=== PATIENT | female | born 1980 | race Caucasian/White ===

== ENCOUNTER 2019-11-11 12:18 | Emergency (ER) | payer SELFPAY ==
--- NOTE | 2019-11-11 13:04 | ER Document Report ---
ED Medical Screen (RME) - General Chief Complaint: Abdominal Pain Stated Complaint: ABDOMINAL PAIN Time Seen by Provider: 11/11/19 12:54 Mode of Arrival: Ambulatory Information source: Patient Notes: 39-year-old female patient with history of fibromyalgia and lupus presents to the emergency department stating that she feels like she is as she has low abdominal pressure. Patient also reports that she has a history of gestational diabetes and she thinks her blood sugars have been high lately which makes her further think that she has . She reports associated nausea with vomiting, denies diarrhea. She does not have a local doctor. She also states that she is concerned because she [place] so she thinks that she is having a lot of health problems from this. Patient is very tearful and very anxious in triage. I have greeted and performed a rapid initial assessment of this patient. A comprehensive ED assessment and evaluation of the patient, analysis of test results and completion of the medical decision making process will be conducted by additional ED providers. I have specifically instructed the patient or family members with the patient to immediately return to any nursing staff should anything change in the patient's condition or with their chief complaint. This medical record was dictated with voice recognizing software. There may be grammatical, syntax errors that are unintended. TRAVEL OUTSIDE OF THE [place] IN LAST 30 DAYS: No - Related Data Allergies/Adverse Reactions: Sulfa (Sulfonamide Antibiotics) Allergy (Verified 11/11/19 12:53) Past Medical History - Social History Chew tobacco use (# tins/day): No Frequency of alcohol use: None Physical Exam - Vital signs Vitals: Temp Pulse Resp BP Pulse Ox 97.6 F 94 18 126/83 H 100 11/11/19 12:42 11/11/19 12:42 11/11/19 12:42 11/11/19 12:42 11/11/19 12:42 Course - Vital Signs Vital signs: Temp Pulse Resp BP Pulse Ox 97.6 F 94 18 126/83 H 100 11/11/19 12:54 11/11/19 12:54 11/11/19 12:54 11/11/19 12:54 11/11/19 12:54
[2019-11-11 13:47] LABS: ABSOLUTE EOSINOPHILS # (AUTO) 0.2 10^3/uL (0.0-0.6); ABSOLUTE LYMPHOCYTES (AUTO) 2.2 10^3/uL (0.5-4.7); ABSOLUTE MONOCYTES (AUTO) 0.5 10^3/uL (0.1-1.4); ABSOLUTE NEUT (AUTO) 3.5 10^3/uL (1.7-8.2); BASOPHILS % (AUTO) 0.5 % (0-2); EOSINOPHILS % (AUTO) 3.4 % (0-6); HEMATOCRIT 44.8 % (36.0-47.0); HEMOGLOBIN 15.3 g/dL (12.0-15.5); LYMPHOCYTES % (AUTO) 33.8 % (13-45); MEAN CORPUSCULAR HEMOGLOBIN 31.1 pg (27.0-33.4); MEAN CORPUSCULAR HGB CONC 34.2 g/dL (32.0-36.0); MEAN CORPUSCULAR VOLUME 91 fl (80-97); MONOCYTES % (AUTO) 7.3 % (3-13); PLATELET COUNT 260 10^3/uL (150-450); RED BLOOD COUNT 4.93 10^6/uL (3.72-5.28); RED CELL DISTRIBUTION WIDTH 12.6 % (11.5-14.0); TOTAL CELLS COUNTED % (AUTO) 100 %; WHITE BLOOD COUNT 6.4 10^3/uL (4.0-10.5)
[2019-11-11 14:14] LABS: ALBUMIN 4.5 g/dL (3.5-5.0); ALKALINE PHOSPHATASE 51 U/L (38-126); ANION GAP 9 (5-19); ASPARTATE AMINO TRANSFERASE 16 U/L (14-36); BILIRUBIN,DIRECT 0.1 mg/dL (0.0-0.4); BILIRUBIN,TOTAL 0.5 mg/dL (0.2-1.3); BLOOD UREA NITROGEN 9 mg/dL (7-20); CALCIUM 9.8 mg/dL (8.4-10.2); CARBON DIOXIDE 26 mmol/L (22-30); CHLORIDE 105 mmol/L (98-107); GLUCOSE 80 mg/dL (75-110); POTASSIUM 4.7 mmol/L (3.6-5.0); TOTAL PROTEIN 7.5 g/dL (6.3-8.2)
--- NOTE | 2019-11-11 14:17 | ER Document Report ---
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 IN LAST 30 DAYS: No - HPI Notes: 39-year-old female to the emergency department with complaints of lower abdomina l "heaviness, and pain for over 1 month with complaints of associated nausea and vomiting. She states that she thinks she might be . She states that she felt this way when she had gestational diabetes and thus thinks that she could also be again. She states that she has not taken a test at home. She denies any vaginal bleeding, vaginal discharge. She denies chance for STD. She has never had an ovarian cyst. She does have a history of lupus and fibromyalgia which is not currently being treated by a primary care physician. She denies any fevers or chills. She denies any diarrhea. She denies any recent travel or recent antibiotic use. She admits to frequent urination and some urgency but denies any dysuria. She also reports that she is living in a house with black mold and is afraid perhaps the black mold is giving her with the symptoms. - Related Data Allergies/Adverse Reactions: Sulfa (Sulfonamide Antibiotics) Allergy (Verified 11/11/19 12:53) Past Medical History - General Information source: Patient - Social History Smoking Status: Current Every Day Smoker Chew tobacco use (# tins/day): No Frequency of alcohol use: None Family History: Reviewed & Not Pertinent Patient has suicidal ideation: No Patient has homicidal ideation: No Review of Systems - Review of Systems Constitutional: denies: Chills, Fever EENT: No symptoms reported Cardiovascular: denies: Chest pain, Palpitations, Orthopnea, Dyspnea, Syncope, Dizziness, Lightheaded Respiratory: denies: Cough, Short of breath Gastrointestinal: Abdominal pain, Nausea, Vomiting. denies: Diarrhea Genitourinary: Frequency, Urgency. denies: Dysuria, Flank pain Female Genitourinary: See HPI. denies: Vaginal discharge, Vaginal bleeding Musculoskeletal: No symptoms reported Skin: No symptoms reported Hematologic/Lymphatic: No symptoms reported Neurological/Psychological: No symptoms reported -: Yes All other systems reviewed and negative Physical Exam - Vital signs Vitals: Temp Pulse Resp BP Pulse Ox 97.6 F 94 18 126/83 H 100 11/11/19 12:42 11/11/19 12:42 11/11/19 12:42 11/11/19 12:42 11/11/19 12:42 Interpretation: Normal - General General appearance: Appears well, Alert - HEENT Head: Normocephalic, Atraumatic Eyes: Normal Pupils: PERRL - Respiratory Respiratory status: No respiratory distress Chest status: Nontender Breath sounds: Normal Chest palpation: Normal - Cardiovascular Rhythm: Regular Heart sounds: Normal auscultation Murmur: No - Abdominal Inspection: Normal Distension: No distension Bowel sounds: Normal Tenderness: Tender - Mild tenderness to palpation over the pelvic abdomen with no focal tenderness to palpation over McBurney's point. Negative Blair sign. No rebound or guarding.. No: McBurney's point, Blair's sign, Guarding, Rebound Organomegaly: No organomegaly - Back Back: Normal, Nontender. 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 Lab work and imaging studies are reassuring. We will have her follow-up outpatient with primary care as well as DIRECT[employer]. Patient agrees with the plan. Encouraged to return if any worsening symptoms. Will send home with antiemetics. Patient agrees - Vital Signs Vital signs: Temp Pulse Resp BP Pulse Ox 97.7 F 93 18 132/84 H 98 11/11/19 17:16 11/11/19 17:16 11/11/19 17:16 11/11/19 17:16 11/11/19 17:16 - Laboratory Result Diagrams: 11/11/19 13:25 11/11/19 13:25 Discharge - Discharge Clinical Impression: Pelvic pain Nausea & vomiting Qualifiers: Vomiting type: unspecified Vomiting Intractability: non-intractable Qualified Code(s): R11.2 - Nausea with vomiting, unspecified Condition: Stable Disposition: HOME, SELF-CARE Instructions: Abdominal Pain ([facility]), Vomiting ([facility]) Additional Instructions: FOLLOW UP WITH THE CLINIC BELOW. RETURN IF WORSENING SYMPTOMS. PUSH FLUIDS. Prescriptions: Ondansetron [Zofran Odt 4 mg Tablet] 1 - 2 tab PO Q4HP PRN #10 tab.rapdis PRN Reason: Etodolac 200 mg PO BID #20 capsule Referrals: SADIQ OROZCO MD [ACTIVE STAFF] - Follow up in 1 week (for DIRECTOR OF [employer]ODUCT DESIGN follow up) [facility] [Provider Group] - Follow up in 1 week
[2019-11-11 14:50] LABS: APPEARANCE,URINE SLIGHTLY-CLOUDY; BILIRUBIN,URINE NEGATIVE (NEGATIVE); COLOR,URINE STRAW; GLUCOSE, URINE NEGATIVE (NEGATIVE); KETONES,URINE NEGATIVE (NEGATIVE); LEUKOCYTE ESTERASE,URINE NEGATIVE (NEGATIVE); NITRITE,URINE NEGATIVE (NEGATIVE); PROTEIN,URINE NEGATIVE (NEGATIVE); URINE SPECIFIC GRAVITY 1.006; UROBILINOGEN,URINE NEGATIVE mg/dL (<2.0)
--- NOTE | 2019-11-11 16:08 | RADIOLOGY REPORT (SQ) ---
EXAM DESCRIPTION: U/S NON OB PEL TV W/DOPPLER COMPLETED DATE/TIME: 11/11/2019 3:50 pm REASON FOR STUDY: pelvic pain COMPARISON: None. TECHNIQUE: Dynamic and static grayscale images acquired of the pelvis via transvaginal approach and recorded on PACS. Additional selected color Doppler and spectral images recorded. LIMITATIONS: None. FINDINGS: UTERUS: Contour normal. No mass. ENDOMETRIAL STRIPE: No focal or generalized thickening. No masses. CERVIX: No nabothian cysts. RIGHT OVARY AND DOPPLER: Ovary not visualized. LEFT OVARY AND DOPPLER: Ovary not visualized. FREE FLUID: None noted. OTHER: No other significant finding. IMPRESSION: NORMAL TRANSVAGINAL PELVIC ULTRASOUND. TECHNICAL DOCUMENTATION: JOB ID: [id number] mAPPn- All Rights Reserved Rev-04/10 Reading location - IP/workstation name: [email or web address]
[2019-11-11 17:17] VITALS: BP 132/84
== END 2019-11-11 17:16 | disposition home or self-care (01) ==
LOC: ER 12:18
DX: R11.2 Nausea with vomiting, unspecified (principal); R10.2 Pelvic and perineal pain; R10.30 Lower abdominal pain, unspecified; F17.200 Nicotine dependence, unspecified, uncomplicated; Z88.2 Allergy status to sulfonamides
CPT/HCPCS: 36415; 76830; 80053; 81001; 83690; 84703; 85025; 93976; 99284